=== PATIENT | male | born 1990 | race Hispanic/Latino ===

== ENCOUNTER 2021-08-18 22:54 | Emergency (ER) | payer OTHER ==
[~2021-08-18] VITALS: Ht 165.1 cm; Wt 71.2 kg
[2021-08-18] MEDS ORDERED: CYCL10TA16 PO (23:16)
[2021-08-18] MEDS ORDERED: ONDA4TAB10 PO (23:16)
[2021-08-18] MEDS ORDERED: NAPR-1180 PO (23:16)
[2021-08-18 23:23] VITALS: BP 132/74
[2021-08-18] MEDS ORDERED: ACETAMINOPHEN 500 MG TABLET PO ONE (23:30)
[2021-08-18] MEDS ORDERED: CYCLOBENZAPRINE HCL 10 MG TABLET PO ONE (23:30)
[2021-08-18] MEDS ORDERED: KETOROLAC 60 MG VIAL (30MG/ML) IM ONE (23:30)
== END 2021-08-18 23:38 | disposition home or self-care (01) ==
LOC: EDH 22:54
DX: S00.83XA Contusion of other part of head, initial encounter (principal); F07.81 Postconcussional syndrome; Z79.1 Long term (current) use of non-steroidal anti-inflammatories (NSAID); Z79.899 Other long term (current) drug therapy; X58.XXXA Exposure to other specified factors, initial encounter; Y93.89 Activity, other specified; Y92.89 Other specified places as the place of occurrence of the external cause; Y99.8 Other external cause status
CPT/HCPCS: 96372; 99283; J1885

== ENCOUNTER 2023-02-08 11:23 | Emergency (ER) | payer OTHER ==
[~2023-02-08] VITALS: Ht 160 cm; Wt 78.5 kg
[~2023-02-08 11:23] MED LIST: CYCL10TA16 PO; NAPR-1180 PO; ONDA4TAB10 PO
[2023-02-08] MEDS ORDERED: 0.9%NACL 1000ML 1,000 ML IV ONE (15:00)
[2023-02-08] MEDS ORDERED: DiphenhydrAMINE HCL 50 MG/ML VIAL IV ONE (15:00)
[2023-02-08] MEDS ORDERED: METOCLOPRAMIDE 10 MG/2 ML VIAL IVP ONE (15:00)
[2023-02-08] MEDS ORDERED: KETOROLAC 30MG VIAL (30MG/ML) IVP ONE (15:00)
[2023-02-08 15:51] LABS: BASOPHILS # (AUTO) 0.07 K/uL (0.00-0.20); BASOPHILS % (AUTO) 1.1 % (0.0-5.0); EOSINOPHILS # (AUTO) 0.18 K/uL (0.00-0.70); EOSINOPHILS % (AUTO) 2.8 % (0.0-8.0); HEMATOCRIT 51.9 % (42-54); IMMATURE GRANULOCYTE ABSOLUTE 0.02 K/uL (0-1); LYMPHOCYTES # (AUTO) 1.8 K/uL (1.0-4.8); LYMPHOCYTES % (AUTO) 28.5 % (21.0-51.0); MEAN CORPUSCULAR HEMOGLOBIN 30.4 pg (27.0-33.0); MEAN CORPUSCULAR HGB CONC 35.1 g/dL (32.0-36.0); MEAN CORPUSCULAR VOLUME 86.8 fL (79-99); MONOCYTES # (AUTO) 0.5 K/uL (0.1-1.0); MONOCYTES % (AUTO) 7.8 % (3.0-13.0); NEUTROPHILS # (AUTO) 3.8 K/uL (1.8-7.7); NEUTROPHILS % (AUTO) 59.5 % (40.0-77.0); PLATELET COUNT (AUTO) 287 K/uL (130-400); RED BLOOD CELL COUNT(AUTO) 5.98 MIL/uL (4.50-6.20); RED CELL DISTRIBUTION WIDTH 12.5 % (11.0-15.5); WHITE BLOOD COUNT (AUTO) 6.4 K/uL (4.8-10.8)
[2023-02-08 16:56] LABS: ALBUMIN 3.2 g/dL (3.5-5.0); BILIRUBIN,TOTAL 0.9 mg/dL (0.2-1.0); CREATININE 0.9 mg/dL (0.5-1.5); POTASSIUM 4.4 mmol/L (3.5-5.1); TOTAL PROTEIN, SERUM 6.5 g/dL (6.0-8.3)
[2023-02-08 17:02] VITALS: BP 122/77; PULSE 62; RESP 16; O2SAT 97
== END 2023-02-08 17:20 | disposition home or self-care (01) ==
LOC: EDH 11:23
DX: S02.5XXA Fracture of tooth (traumatic), initial encounter for closed fracture (principal); R42 Dizziness and giddiness; R51.9 Headache, unspecified; X58.XXXA Exposure to other specified factors, initial encounter; Y93.89 Activity, other specified; Y92.89 Other specified places as the place of occurrence of the external cause; Y99.8 Other external cause status
CPT/HCPCS: 99285; 96374; 70450; 96375; 80053; 85025; 36415; J1200; J7030; J1885; J2765